=== PATIENT | female | born 1985 | race African-American/Black ===

== ENCOUNTER → 2016-08-09 | Day surgery (SDC) | payer OTHER ==
[~2016-08-09] MED LIST: BUPIVACAINE HCL PF 0.5% 30 ML VIAL ONE; BUPIVACAINE HCL PF 0.75% 30 ML VIAL ONE; LACTATED RINGER'S 1000 ML INJ 1,000 ML ONE; LIDOCAINE 1.5%/EPINEPHrine 1:200,000 PF SOLN 30 ML AMP ONE; MIDAZOLAM HCL 5 MG/ML VIAL (1 ML) ONE; ONDANSETRON HCL 4 MG/2 ML VIAL IV PUSH ONE; PROPOFOL 500 MG/50 ML BTL IV ONE; Z.0.NO CURRENT MEDS; ceFAZolin 2 GM PREMIX 50 ML ONE
--- NOTE | 2016-08-12 20:04 | MP ---
cc: SOLEDAD GALEAS DPM DATE OF SURGERY August 09, 2016 DATE OF 05/30/1984 PREOPERATIVE DIAGNOSES 1. Left posterior tibial tendon dysfunction. 2. Left adult acquired pes plano valgus deformity. 3. Left ankle equinus. POSTOPERATIVE DIAGNOSES 1. Left posterior tibial tendon dysfunction. 2. Left adult acquired pes plano valgus deformity. 3. Left ankle equinus. PROCEDURE 1. Left gastrocnemius resection. 2. Left talonavicular fusion. 3. Left subtalar joint fusion with bone graft. SURGEON Soledad Galeas DPM [employer]. TOURNIQUET TIME 300 mmHg to the left thigh for 124 minutes. ESTIMATED BLOOD LOSS 30 cc. COMPLICATIONS None. SPECIMEN None. INDICATION This patient is a 31-year-old female who has a congenital pes planus deformity with severe posterior tibial tendon dysfunction with severely forefoot abduction and medial hind foot valgus deformity with severe pain, unable to wear bracing or a boot. The patient is requesting surgical intervention for the problem at this time due to pain, loss of function. The patient understands the procedure performed today as well as potential risks and complications which involve possible non union, possible revisional surgery required, possible loss of fixation, failure of the hardware, infection. The patient understands all of these complications and would like to proceed. The patient signed consent preoperatively. The patient understands the procedure to be performed today. OPERATION DETAILS The patient was brought to the operating room and placed on the operating table in the supine position. Pneumatic thigh tourniquet placed about the left thigh. Preoperatively a popliteal saphenous block was performed by anesthesia. Thigh tourniquet was placed once under general anesthesia. First attention was directed to a medial incision approximately 8-10 cm above the ankle joint at the myotendinous junction of the Achilles in which a 4 cm longitudinal incision was made. Care was taken to avoid all vital structures, __sural__ nerve, saphenous vein. Vital structures were retracted inferiorly. The fascia of the gastroc was identified and a 15 blade and iris scissors were used to free up the gastroc fascia. It was found to have more dorsiflexion prior to the gastroc it was about -5 degrees DF and after the gastroc resection it was about +7/8 with good range of motion of the ankle joint. That area was copiously flushed. Vicryl was used to close the subcutaneous tissue and nylon was used to close the skin. Next attention was directed under C-arm in which an incision just inferior and posterior to the medial malleolus down to the level of the navicular cuneiform joint along and just slightly dorsal to the posterior tibial tendon was made. Care was taken to the deepen the incision. Once into the sheath of the posterior tibial tendon the sheath was opened and the posterior tibial was traced down to the navicular. Sharp dissection was used to go underneath the posterior tibial tendon and identify the subtalar and talonavicular joint. It was found the talonavicular joint was severely subluxed and with the talus placed medially and very plantarly angles and also the talus had somewhat slipped off of the subtalar joint. That was identified using laminar spreaders and joint distractor. The cartilage was debrided off of the subtalar joint. The cartilage was removed. K wire and osteotome was used to feather the subchondral bone for good punctate bleeding. Upon careful examination it was found that the flexor hallucis longus from dissection had an approximately one-third bushra in it. 5-0 Monocryl was used to repair the portion of the tendon that was nicked and the tendon while flexing the hallux up and down was found to be still intact. With the K wire placed in the sustentaculum mika and the vital structures inferior, the joint again was examined and the cartilage was taken off of both the subtalar joint and the talonavicular joint. Next attention was directed in which C-arm was used to guide two K wires into the subtalar joint form posteroinferior and dorsal/distal. It was found to have good position. The heel that had been preoperatively at about 8 degrees of valgus was found to be right at zero. Careful examination again was used to check the Achilles and found to be right at an exact neutral position, though for her it made her foot look varus because of the prior severe flat foot deformity with the K wires in place in the subtalar joint. Next using a bump to protect the K wires in the subtalar joint going from posterior inferior from the calcaneus up to the neck of the talus. Three K wires, one going from the talar neck into the lateral portion of the navicular and then two going from the inferior and central portion of the navicular into the talus were thrown. C-arm was used to reveal good position. There was no talar uncovering. Again the position of the foot appeared exaggerated because of the significant flat foot deformity preoperatively. Next with all K wires in place a 6.3 Bobby screw was thrown using the central K wire of the subtalar joint and was found to be in good position. The other K wire was removed. C-arm was used to reveal good position. There did appear slight gap in between the posterior and middle facet that was presumed to be because of how significant the talus had fallen off of the subtalar joint that it actually was required to get the talus on top of the calcaneus. With that K wire thrown, 4.3 bobby style screws by [employer] were thrown. The one from the talar neck to the navicular was 36 mm and the two going from the navicular to the talus were a 55 and 55 partially threaded. There was found to be excellent compression and very hard bone. There was on C-arm in the AP a slight opening into the talonavicular joint medially due to the altered shape of the navicular due to previous significant flat foot deformity. Everything was found to be in place. Final C-arm shots in AP, calc axial, lateral, medial, oblique all showed good alignment of the foot. Again examination of the Achilles showed a neutral position of the Achilles. Next, bone chips were applied in to the subtalar joint and the talonavicular joint to help promote bone fusion. The tourniquet was deflated and all punctate bleeders were cauterized. There were no pulsating bleeding, just oozing from the bone. Next, Vicryl was used to close the subcutaneous tissue, nylon was used to close the skin. Steri-Strips, 4 x 4, ABD, cast padding, posterior splint with an Alejandro were used. The patient handled anesthesia well. NESTOR Guzman /2:25 PM /7:30 PM [facility] INSANEHarmeet
== END | disposition home or self-care (01) ==
LOC: ESDC 09:13
PROVIDERS: ATTEND Podiatrist Foot & Ankle Surgery
DX: Q66.52 Congenital pes planus, left foot (principal)
CPT/HCPCS: 01474; 01480; 27687; 28725; 28740; 64450; 73630; 76000; C1713; J0690; J2250; J2405; J3010; J7120

== ENCOUNTER 2016-11-03 22:35 | Emergency (ER) | payer OTHER ==
[~2016-11-03] VITALS: Ht 172.7 cm; Wt 102.5 kg
[~2016-11-03 22:35] MED LIST changes: -BUPIVACAINE HCL PF 0.5% 30 ML VIAL ONE; -BUPIVACAINE HCL PF 0.75% 30 ML VIAL ONE; -LACTATED RINGER'S 1000 ML INJ 1,000 ML ONE; -LIDOCAINE 1.5%/EPINEPHrine 1:200,000 PF SOLN 30 ML AMP ONE; -MIDAZOLAM HCL 5 MG/ML VIAL (1 ML) ONE; -ONDANSETRON HCL 4 MG/2 ML VIAL IV PUSH ONE; -PROPOFOL 500 MG/50 ML BTL IV ONE; -ceFAZolin 2 GM PREMIX 50 ML ONE
[2016-11-03 22:42] VITALS: BP 128/70; PULSE 130; RESP 16; TEMP 98.1; O2SAT 100
[2016-11-03] MEDS ORDERED: TETANUS/DIPHTHERIA TOXOID ADULT 0.5 ML VIAL IM ONE (23:00)
[2016-11-03] MEDS ORDERED: LIDOCAINE 1%/EPINEPHrine 1:100,000 SOLN 20 ML VIAL INFIL ONE (23:00)
--- NOTE | 2016-11-03 23:04 | PD ---
HPI . Forehead laceration Chief Complaint: Laceration/Skin Injury Time Seen by Provider: 23:00 Travel History International Travel<30 days: No Contact w/Intl Traveler<30days: No Traveled to known affect area: No History of Present Illness HPI This patient presents with a forehead laceration. She states that she was walking up some steps and inadvertently tripped and fell and struck her forehead on a dumbbell. She reports no loss of consciousness. She denies neck pain. She does not know the date of her last tetanus shot. REPLACED BY [facility] Past Medical History Blood Disorders: No Chest Pain: Yes Headaches: Yes Hypertension: Yes (NO MEDS) Migraines: Yes ?: Not LMP: "Last week" Social History Alcohol Use: No Tobacco Use: Yes (OCC) Substance Use: No Allergies-Medications (Allergen,Severity, Reaction): Coded Allergies: Augmentin (Verified Allergy, Mild, BLISTERS / RASH, 05/08/11) Reported Meds & Prescriptions Reported Meds & Active Scripts Active Reported No Current Meds (Miscellaneous Medication) Misc Review of Systems Except as stated in HPI: all other systems reviewed are Neg Eyes: No: Blurred Vision HENT: No: Headaches, Lightheadedness Gastrointestinal: No: Nausea Skin: Positive Other (laceration) Physical Exam Narrative GENERAL: Awake and alert and in no acute distress. SKIN: Warm and dry. She has an L-shaped laceration on the forehead. HEAD: Atraumatic. Normocephalic. She does have some swelling of her nose but no deformity. EYES: Pupils equal and round. Extraocular movements are intact. NECK: Trachea midline. Neck is nontender. Full range of motion without pain. CARDIOVASCULAR: Regular rate and rhythm. RESPIRATORY: No accessory muscle use. MUSCULOSKELETAL: No obvious deformities. No edema. NEUROLOGICAL: Awake and alert. No obvious cranial nerve deficits. Motor grossly within normal limits. Normal speech. PSYCHIATRIC: Appropriate mood and affect; insight and judgment normal. Data Data Last Documented VS Vital Signs Date Time Temp Pulse Resp B/P Pulse Ox O2 Delivery O2 Flow Rate FiO2 11/03/16 22:55 11/03/16 22:55 137 11/03/16 22:42 98.1 16 100 Room Air Orders Lidocai-Epi 1%-1:100,000 Inj (Xylocaine- (11/03/16 23:00) Tetanus/Diphtheria Tox Adult (Tetanus/Di (11/03/16 23:00) Lidocai-Epi 1%-1:100,000 Inj (Xylocaine- (11/03/16 23:45) MDM Medical Decision Making Medical Screen Exam Complete: Yes Emergency Medical Condition: Yes Differential Diagnosis Differential diagnosis includes but is not limited to skin laceration, muscular laceration, tendon laceration, neurovascular laceration. Narrative Course This patient presents for repair of a forehead laceration. Her tetanus needs to be updated. Procedures Procedure Narrative LACERATION LOCATION: Forehead LENGTH: 3.5 cm NUMBER OF STITCHES/LESTER: 12 REPAIR: The area of the laceration was prepped with Betadine and sterilely draped. The laceration was infiltrated with lidocaine with epi. The wound was copiously irrigated and explored without evidence of foreign body, tendon injury or neurovascular injury. The wound was closed using 6-0 gut subcutaneous sutures X 4 followed by 6-0 Prolene skin sutures . This was a 2 layer repair. A sterile dressing was applied. The patient was advised to keep the dressing clean and dry. Patient tolerated the procedure well. Diagnosis Primary Impression: Forehead laceration Qualified Code: S01.81XA - Forehead laceration, initial encounter Patient Instructions: Facial Laceration (ED), General Instructions Additional Instructions: Clean the wound twice daily with soap and water. Apply a thin layer of Neosporin ointment after you wash it. See your doctor in 5 days for suture removal. Seek care sooner for redness, drainage, warmth, unusual pain. Disposition: 01 DISCHARGE HOME Condition: Stable Amirah Resendez MD Nov 03, 2016 23:04
[2016-11-03] MEDS ORDERED: LIDOCAINE 1%/EPINEPHrine 1:100,000 SOLN 30 ML VIAL INFIL ONE ×2 (23:15→23:45)
[2016-11-04 00:31] VITALS: PULSE 105
== END 2016-11-04 00:43 | disposition home or self-care (01) ==
LOC: PHED 22:35
DX: S01.81XA Laceration without foreign body of other part of head, initial encounter (principal); W10.9XXA Fall (on) (from) unspecified stairs and steps, initial encounter; Y93.01 Activity, walking, marching and hiking; Z23 Encounter for immunization
CPT/HCPCS: 12052; 90471; 90714